=== PATIENT | female | born 1960 | race African-American/Black ===

== ENCOUNTER 2016-07-17 09:28 | Inpatient (IN) | payer OTHER ==
--- NOTE | ~2016-07-17 | BMI ---
[facility] Nutrition Therapy DATE: 07/18/16 Patient: LAUREN CRANDALL Physician: MARK Address: [id number] [place] [address] Room/Bed: [address] [place] [address], Zip: [place] [address] Admit Date: 07/17/16 Date of : [birth year] Height: 5 7 Weight: 298 135.5 HIGH BMI NOTE: DX: 55 Y.O. FEMALE ADMITTED FOR COPD ANTHROPOMETRICS: 5'7", WT: 300# (136 KG), BMI: 47.0 DIET: HH INTERVENTION: 1. DIET RECOMMENDATIONS: 1. RECOMMEND TO ADD CC TO CURRENT DIET ORDER ABOVE TO PROMOTE GRADUAL WEIGHT LOSS TOWARDS HEALTHY BMI (19.0-25.0) OR +/-10%IBW RD WILL F/U PER PROTOCOL Respectfully, KOFI FORTUNE MS, RD, LD Food and Nutritional Services [facility] cc: client file
--- NOTE | ~2016-07-17 | HP ---
Unit #: [id number] #: [id number] Patient: LAUREN CRANDALL [id number] [address] [address] [id number] I MR#: [id number] NAME: LAUREN CRANDALL ROOM: 14559 Age: 55 Sex: F Admission Date: 07/17/2016 : 1960 Attending Physician: Rob Corona M.D. Primary Care Physician: Perfecto Padilla Aprn HISTORY AND PHYSICAL CHIEF COMPLAINT Shortness of breath. HISTORY OF PRESENT ILLNESS The patient is a 55-year-old with multiple medical problems, including chronic obstructive pulmonary disease, obstructive sleep apnea, hypertension, diabetes, status post renal transplant. The patient presented to the emergency room with shortness of breath. The patient stated she woke up at 4 o'clock to make coffee. The patient stated she went to bed after that and noticed the heart fluttering. The patient stated she had a visit with her [facility] physician and was recommended to go to the hospital. The patient was found to be tachypneic and tachycardic at the time of arrival with blood pressure of 123/118 and heart rate 107. The patient had ABG that showed pH 7.4, pCO2 49, pO2 55 and oxygen saturation 95.8. The patient received Lasix and Solu-Medrol in the emergency room and showed improvement after Solu-Medrol. The patient has been admitted for the above reasons. PAST MEDICAL HISTORY 1. Chronic obstructive pulmonary disease. 2. Obstructive sleep apnea on CPAP. 3. Hypertension. 4. Lymphedema of the left breast and left arm after dialysis shunt was removed from the left arm. 5. Migraines. 6. History of kidney failure, status post renal transplant. 7. Depression. 8. Adult onset diabetes mellitus. 9. Gastroesophageal reflux disease. 10. History of hepatitis C. 11. Degenerative joint disease. 12. Bladder cancer. 13. Left knee replacement. PAST SURGICAL HISTORY 1. Left kidney transplant. 2. Left knee replacement. 3. Shunt removal from the left arm. 4. Left breast removed. 5. Fibroid removed. SOCIAL HISTORY The patient lives with her . Started smoking 13 years ago. Seldom drinks alcohol. Unit #: [id number] #: [id number] Patient: LAUREN CRANDALL FAMILY HISTORY Notable for diabetes, heart disease. ALLERGIES No known drug allergies. HOME MEDICATIONS 1. Pepcid. 2. Claritin. 3. Multivitamin. 4. Lantus 40 units subcutaneous before bedtime. 5. Gabapentin. 6. Hydrocodone. 7. Symbicort. 8. Spiriva. 9. Ventolin. 10. Humalog sliding scale. 11. Mycophenolate. 12. K-Sena. 13. Lipitor. 14. Coreg. 15. Norvasc. 16. Phenergan. 17. Ranitidine. 18. Prednisone. 19. Lasix. REVIEW OF SYSTEMS Fourteen point review of systems was performed and only pertinent positives are described above. Remaining are negative. PHYSICAL EXAMINATION GENERAL: The patient is lying on a bed, not in acute distress. VITALS: Temperature 98.6, pulse 112, respiratory rate 20, blood pressure 129/92, saturating 97% on 2 liters nasal cannula. HEENT: Head atraumatic, normocephalic. Pupils equal, round and reactive to light and accommodation. Extraocular movements intact. Dry mucous membranes. NECK: Supple. No jugular venous distension. LUNGS: Decreased air entry at the bases. Positive for expiratory wheezing. HEART: Regular rate and rhythm. Tachycardic. ABDOMEN: Soft. Positive bowel sounds. EXTREMITIES: No cyanosis. No clubbing. NEUROLOGIC: Alert, awake and oriented. No gross focal motor deficits. DIAGNOSTIC STUDIES IMAGING: Chest x-ray shows stable cardiomegaly. No new infiltrates since the previous exam. No active pulmonary disease. LABORATORY: pH 7.4, pCO2 49.8, pO2 55.1, bicarb 30.8, oxygen saturation 85.8 on room air. Glucose 159, BUN 16, creatinine 1, sodium 142, potassium 3.7, chloride 101, bicarb 29, magnesium 1.3, BNP 119. White blood cell count 7.2, hemoglobin 11.0, hematocrit 35.2, platelets 162. CARDIOVASCULAR: EKG shows sinus tachycardia at a rate of 107 beats per minute. CO interval 154. QTC 440. Unit #: [id number] #: [id number] Patient: LAUREN CRANDALL ASSESSMENT 1. Chronic obstructive pulmonary disease exacerbation. 2. Hypoxia. 3. Diabetes mellitus. 4. Anemia. PLAN Admit to inpatient with telemetry. Continue with IV steroids 40 mg q.12 h. Continue with duo-nebs q.4 h. p.r.n. Continue with sliding scale and repeat the labs again in the morning. Further recommendations will follow. Dictated by Kenisha Zuniga TD: 07/17/2016 13:01 JOB #: [id number] HISTORY AND PHYSICAL Page 1 of 1 X X HISTORY AND PHYSICAL
--- NOTE | ~2016-07-17 | DS ---
Unit #: [id number] #: [id number] Patient: LAUREN CRANDALL [id number] [address] [address] [id number] I MR#: [id number] NAME: LAUREN CRANDALL ROOM: [facility] Age: 55 Sex: F Admission Date: 07/17/2016 : 1960 Discharge Date: 07/18/2016 Attending Physician: Karla Schmidt M.D. Primary Care Physician: Perfecto Padilla, Ramona DISCHARGE SUMMARY DISCHARGE DIAGNOSES 1. [id number] hypoxic respiratory failure. 2. Chronic obstructive pulmonary disease with exacerbation. 3. Diabetes mellitus, uncontrolled secondary to steroids. 4. Morbid obesity, body mass index of 47. 5. Obstructive sleep apnea, on CPAP. 6. Hypertension. 7. History of lymphedema of the left breast and left arm after dialysis shunt was removed from left arm. 8. History of migraines. 9. History of kidney failure, status post renal transplant. 10. Depression. 11. Gastroesophageal reflux disease. 12. History of hepatitis C. 13. Degenerative joint disease. 14. History of bladder cancer. 15. Left knee replacement. CONSULTATIONS None. PROCEDURES None. DIAGNOSTIC STUDIES LABORATORY DATA: BMI 47. Glucose 279, sodium 139, potassium 4.5, creatinine 0.9, WBC 6.8, hemoglobin 10.5, platelets 145, BNP 119. ABG: pH 7.40, carbon dioxide 49, oxygen 55. ALLERGIES Peanuts, latex, heparin. DISCHARGE MEDICATIONS 1. Albuterol mini-neb nebulizer q.4 h. p.r.n. shortness of breath. 2. Symbicort two puff inhalation b.i.d. 18 mcg. 3. Prednisone tapering dose. 4. Spiriva 18 mcg inhalation daily. 5. Gabapentin 300 mg daily. 6. Claritin 10 mg daily. 7. Phenergan 25 q.6 h. p.r.n. nausea. 8. Lipitor 80 daily. 9. Coreg 25 p.o. b.i.d. 10. Norvasc 10 daily. 11. Lasix 40 p.o. b.i.d. Unit #: [id number] #: [id number] Patient: LAUREN CRANDALL 12. Humalog 35 units subcu t.i.d. with meals. 13. Lantus 40 units subcu b.i.d. 14. Pepcid 20 p.o. daily. 15. Myfortic 360 mg p.o. b.i.d. 16. Prograf 7 mg p.o. b.i.d. 17. Multivitamin one tablet daily. 18. Lortab 10 mg q.8 h. p.r.n. pain. 19. Potassium 10 mEq p.o. daily. 20. Albuterol MDI two puffs inhalation q.i.d. p.r.n. shortness of breath. HOSPITALIZATION COURSE A 55 year old admitted because of shortness of breath. Oxbdk-tr-nbqnpyk hypoxic respiratory failure secondary to COPD, currently stable. Continue with home O2. COPD with exacerbation. Started on IV Solu-Medrol. Currently lungs are clear. Continue with prednisone tapering dose, DuoNebs and Symbicort and Spiriva. Chronic anemia, iron deficiency, stable. Diabetes mellitus type 2, uncontrolled secondary to steroids. Continue with the home insulin. Morbid obesity, BMI of 47 secondary to calories. Patient is seen by dietitian. Continue the low calorie diet. DISPOSITION Patient will be discharged home. FOLLOWUP Follow with family physician in one-week's time. Dictated by... Kenisha Davis/sulma TD: 07/18/2016 17:34 JOB #: [id number] DISCHARGE SUMMARY Page 1 of 1 X Karla Schmidt MD X DISCHARGE SUMMARY
--- NOTE | ~2016-07-17 | CR72 ---
[facility] A Service [facility] RADIOLOGY TEXT RESULTS PATIENT: LAUREN CRANDALL LOCATION: [facility] : [birth year] UNIT #: [id number] AGE: [address]: Dinora Khanna SEX: F ORDER DR: [id number] [facility] [address]. [place], [place] [address] [id number] MR#: [id number] Acc #: [id number] NAME: LAUREN CRANDALL : 1960 SEX: F STUDY DATE/TIME: 07/17/2016 8:34 UNIT: [facility] ROOM: STUDY DESCRIPTION: CR Chest Single View Portable Attending Physician: Dinora Khanna P.A.-C. Ordering Physician: Dinora Khanna P.A.-C. Primary Care Physician: Perfecto Padilla Aprn MEDICAL IMAGING REPORT This report is preliminary unless electronic signature is present EXAM Portable chest. HISTORY Shortness of breath for the past 2 days with a history of chronic emphysema. COMPARISON 05/13/2016 TECHNIQUE Single view of the chest was obtained. FINDINGS Cardiomegaly is again noted. The lungs are clear with no focal infiltrates. No pleural fluid is seen. Vascular markings are within normal limits. IMPRESSION Stable cardiomegaly. No new infiltrates are seen since the previous exam. No active pulmonary disease. Dictated by... Ren Albarran M.D. THIS IS AN ELECTRONICALLY VERIFIED REPORT Ren Albarran M.D. at 07/17/2016 10:46 AM RLF/laura TD: 07/17/2016 10:15 JOB #: [id number] [facility] A Service [facility] RADIOLOGY TEXT RESULTS PATIENT: LAUREN CRANDALL LOCATION: [facility] : [birth year] UNIT #: [id number] AGE: [address]: Dinora Khanna SEX: F ORDER DR: MEDICAL IMAGING REPORT Page 1 of 1 COPY
--- NOTE | ~2016-07-17 | EKG ---
PATIENT: LAUREN CRANDALL UNIT #: [id number] Ventricular Rate: 88 BPM Atrial Rate: 88 BPM P-R Interval: 162 ms QRS Duration: 64 ms Q-T Interval: 358 ms QTC Calculation(Bezet): 433 ms P [place]: 28 degrees Calculated R [place]: 1 degrees Calculated T [place]: 49 degrees Diagnosis Line: Normal sinus rhythm Diagnosis Line: Low voltage QRS Diagnosis Line: Baseline wander Otherwise normal ECG Diagnosis Line: When compared with ECG of 17-JUL-2016 08:29, Diagnosis Line: ST now depressed in Inferior leads Diagnosis Line: Confirmed by RICARDO LEAL MD ([id number]) on 07/21/2016 Diagnosis Line: 10:45:17 PM INTERPRETING MD: MEL SPEARS
--- NOTE | ~2016-07-17 | EKG ---
PATIENT: LAUREN CRANDALL UNIT #: [id number] Ventricular Rate: 107 BPM Atrial Rate: 107 BPM P-R Interval: 154 ms QRS Duration: 84 ms Q-T Interval: 330 ms QTC Calculation(Bezet): 440 ms P [place]: 44 degrees Calculated R [place]: -13 degrees Calculated T [place]: 53 degrees Diagnosis Line: Sinus tachycardia Diagnosis Line: Low voltage QRS Diagnosis Line: Otherwise normal ECG Diagnosis Line: When compared with ECG of 07-JAN-2016 19:59, Diagnosis Line: QRS duration has increased Diagnosis Line: ST no longer depressed in Inferior leads Diagnosis Line: Confirmed by RICARDO LEAL MD ([id number]) on 07/18/2016 Diagnosis Line: 9:35:14 AM INTERPRETING MD: MEL SPEARS
[2016-07-17 08:50] LABS: ARTERIAL BLD GAS O2 SATURATION 85.8 % (90.0-100.0); ARTERIAL BLOOD GAS CARBOXY HB 1.1 %sat (0.0-9.0); ARTERIAL BLOOD GAS HCO3 30.9 mmol/L; ARTERIAL BLOOD GAS MET HB 0.7 %sat (0.0-2.0); ARTERIAL BLOOD GAS PCO2 49.8 mmHg (35.0-45.0)
[2016-07-17 08:51] LABS: ARTERIAL BLOOD GAS ALLEN TEST NORMAL; ARTERIAL BLOOD GAS ART SITE RIGHT RADIAL; ARTERIAL BLOOD GAS PO2 55.1 mmHg (80.0-100); ARTERIAL DRAW? YES
[2016-07-17 08:52] LABS: ARTERIAL BLOOD GAS DELIVERY ROOM AIR
[2016-07-17 09:17] LABS: POC - CKMB <1.0 ng/mL (0.0-7.9); POC - TROPONIN <0.05 ng/mL (<=0.05)
[2016-07-17 09:20] LABS: BASOPHIL% 0.4 % (0-2.5); EOSINOPHIL# 0.1 X10e3 (0-0.7); HEMATOCRIT 35.2 % (35.0-45.0); LYMPHOCYTE# 1.9 X10e3 (1.0-3.5); LYMPHOCYTE% 26.3 % (17.0-45.0); MEAN CELL VOLUME 92.2 FL (83-96); MEAN CORPUSCULAR HEMOGLOBIN 28.8 PG (28-34); MEAN CORPUSCULAR HGB CONC 31.3 g/dL (30-36); MEAN PLATELET VOLUME 7.9 FL (6.5-11.5); MONOCYTE# 0.8 X10e3 (0-1.0); MONOCYTE% 11.1 % (3.0-12.0); NEUTROPHIL# 4.4 X10e3 (1.5-7.1); NEUTROPHIL% 61.2 % (40-75); PLATELET COUNT 162 X10e3 (140-420); RED BLOOD COUNT 3.82 X10e (3.90-5.30); WHITE BLOOD COUNT 7.2 X10e3 (4.0-10.5)
[2016-07-17 09:21] LABS: DIFF IND NO
[~2016-07-17 09:28] MED LIST: ACID CONTROL150 MG PO; ALBUTEROL17 GM INH; ALOE VERA TOP; AMLODIPINE BESY10 MG PO; CARVEDILOL25 MG PO; COMBIVENT U/D3 M2 INH; COSOPT EYE DROPS5 ML OU; DELTASONE20 MG PO; DEMADEX PO; ELIQUIS5 MG PO; GABAPENTIN300 MG PO; GABAPENTIN400 M2 PO; HUMALOG KW200 UNIT/1 SUBQ; HUMALOG100 U/ML SQ; HYDRALAZINE HCL50 MG PO; HYDROCODON-ACE1 EAC5 PO; K-DUR20 ME1 DOB; KLOR-CON SPRIN10 MEQ PO; LANTUS100 UNITS/ SUBQ; LASIX20 MG PO; LINZESS145 MCG PO; LIPITOR40 MG PO; LIPITOR80 MG PO; LISINOPRIL2.5 MG PO; MILK OF MAGNESIA PO; MIRALAX17 G2 PO; MYFORTIC180 MG PO; NITROGLYGERIN0.4 MG SL; NORCO 10-325 TA1 TAB PO; PEPCID AC20 M2 PO; PHENERGAN25 M1 PO; PREDNISONE5 M1 PO; PRILOSEC PO; ROBITUSSIN A-C S5 ML PO; SPIRIVA18 MCG INH; SYMBICORT80 INH; TOPROL XL PO; TRADJENTA5 MG PO; TYLENOL325 M1 PO; VITAMIN D3400 UNI2 PO; XALATAN OU
[2016-07-17 09:53] LABS: CALCIUM SERUM 9.6 mg/dL (8.4-10.2); GLOM FILT RATE Estimated 74.5 mL/min (>60); POTASSIUM 3.7 mmol/L (3.5-5.1)
[2016-07-17] MEDS ORDERED: CLARITIN10 M3 PO (10:45)
[2016-07-17] MEDS ORDERED: ANIMAL SHAPES1 EAC2 PO (10:50)
[2016-07-17] MEDS ORDERED: LANTUS100 U/ML SUBQ ×2 (10:50→10:51)
[2016-07-17] MEDS ORDERED: LANTUS100 U/ML PO (11:09)
[2016-07-17 11:24] LABS: POC - CKMB <1.0 ng/mL (0.0-7.9); POC - TROPONIN <0.05 ng/mL (<=0.05)
[2016-07-17] MEDS ORDERED: PROGRAF1 MG PO (13:32)
[2016-07-18 07:56] LABS: HEMATOCRIT 33.8 % (35.0-45.0); HEMOGLOBIN 10.5 gm/dL (12.0-16.0); MEAN CORPUSCULAR HEMOGLOBIN 28.8 PG (28-34); MEAN PLATELET VOLUME 8.4 FL (6.5-11.5); RED BLOOD COUNT 3.64 X10e (3.90-5.30); RED CELL DISTRIBUTION WIDTH 19.2 % (11.0-15.5); WHITE BLOOD COUNT 6.8 X10e3 (4.0-10.5)
[2016-07-18 08:44] LABS: BUN/CREATININE RATIO 21.11; CALCIUM SERUM 9.4 mg/dL (8.4-10.2); CREATININE SERUM 0.9 mg/dL (0.6-1.4); GLOM FILT RATE Estimated 84.7 mL/min (>60); POTASSIUM 4.5 mmol/L (3.5-5.1)
== END 2016-07-18 17:22 | disposition home or self-care (01) | DRG 190 ==
LOC: CED 09:28 → CEDOF 10:45 → C5C 17:35
PROVIDERS: Physician Assistant
DX: J44.1 Chronic obstructive pulmonary disease with (acute) exacerbation (principal); J96.21 Acute and chronic respiratory failure with hypoxia; Z94.0 Kidney transplant status; I10 Essential (primary) hypertension; D64.9 Anemia, unspecified; E09.9 Drug or chemical induced diabetes mellitus without complications; Z68.42 Body mass index [BMI] 45.0-49.9, adult; Z79.84 Long term (current) use of oral hypoglycemic drugs; T38.0X5A Adverse effect of glucocorticoids and synthetic analogues, initial encounter; E66.01 Morbid (severe) obesity due to excess calories; G47.33 Obstructive sleep apnea (adult) (pediatric); G43.909 Migraine, unspecified, not intractable, without status migrainosus; F32.9 Major depressive disorder, single episode, unspecified; K21.9 Gastro-esophageal reflux disease without esophagitis; B19.20 Unspecified viral hepatitis C without hepatic coma; M19.90 Unspecified osteoarthritis, unspecified site; Z96.652 Presence of left artificial knee joint; Z85.51 Personal history of malignant neoplasm of bladder
CPT/HCPCS: 36415; 36600; 71010; 80048; 82553; 82803; 82947; 83880; 84484; 85025; 85027; 93005; 94640; 94664; 94760; 96374; 96375; 99285; J1815; J1940; J2405; J2920; J2930; J7507; J7518

== ENCOUNTER → 2016-07-24 | Outpatient (CLI) | payer OTHER ==
[~2016-07-24] MED LIST changes: +ANIMAL SHAPES1 EAC2 PO; +CLARITIN10 M3 PO; +LANTUS100 U/ML PO; +LANTUS100 U/ML SUBQ; +PROGRAF1 MG PO
[2016-07-24 10:02] LABS: BASOPHIL# 0.1 X10e3 (0-0.3); BASOPHIL% 1.3 % (0-2.5); EOSINOPHIL% 0.7 % (0.0-7.0); HEMATOCRIT 34.6 % (35.0-45.0); LYMPHOCYTE# 1.5 X10e3 (1.0-3.5); LYMPHOCYTE% 24.7 % (17.0-45.0); MEAN CELL VOLUME 92.4 FL (83-96); MEAN CORPUSCULAR HEMOGLOBIN 29.4 PG (28-34); MEAN CORPUSCULAR HGB CONC 31.9 g/dL (30-36); MEAN PLATELET VOLUME 7.6 FL (6.5-11.5); MONOCYTE# 0.7 X10e3 (0-1.0); MONOCYTE% 11.2 % (3.0-12.0); NEUTROPHIL# 3.8 X10e3 (1.5-7.1); NEUTROPHIL% 62.1 % (40-75); PLATELET COUNT 148 X10e3 (140-420); RED BLOOD COUNT 3.74 X10e (3.90-5.30); RED CELL DISTRIBUTION WIDTH 18.2 % (11.0-15.5); WHITE BLOOD COUNT 6.2 X10e3 (4.0-10.5)
[2016-07-24 10:03] LABS: DIFF IND NO
[2016-07-24 10:18] LABS: PROTHROMBIN TIME (PATIENT) 11.3 SECONDS (9.5-12.4)
[2016-07-24 10:27] LABS: ALBUMIN SERUM 3.8 g/dL (3.5-5.0); BILIRUBIN,TOTAL 0.7 mg/dL (0.2-2.0); CALCIUM SERUM 9.1 mg/dL (8.4-10.2); GLOM FILT RATE Estimated 74.5 mL/min (>60); MAGNESIUM 1.9 mg/dL (1.6-3.0); POTASSIUM 4.2 mmol/L (3.5-5.1); PROTEIN TOTAL SERUM 7.2 g/dL (6.0-8.3)
== END | disposition home or self-care (01) ==
LOC: STPL 08:39
PROVIDERS: Surgery
DX: Z48.22 Encounter for aftercare following kidney transplant (principal); T45.1X1A Poisoning by antineoplastic and immunosuppressive drugs, accidental (unintentional), initial encounter; Z94.0 Kidney transplant status; Z79.899 Other long term (current) drug therapy
CPT/HCPCS: 36415; 80053; 80197; 83735; 85025; 85610

== ENCOUNTER → 2016-07-31 | Outpatient (CLI) | payer OTHER ==
[2016-07-31 10:23] LABS: BASOPHIL% 0.8 % (0-2.5); EOSINOPHIL# 0.1 X10e3 (0-0.7); HEMATOCRIT 33.8 % (35.0-45.0); HEMOGLOBIN 10.8 gm/dL (12.0-16.0); LYMPHOCYTE# 1.6 X10e3 (1.0-3.5); LYMPHOCYTE% 26.9 % (17.0-45.0); MEAN CELL VOLUME 92.8 FL (83-96); MEAN CORPUSCULAR HEMOGLOBIN 29.7 PG (28-34); MEAN PLATELET VOLUME 7.7 FL (6.5-11.5); MONOCYTE# 0.7 X10e3 (0-1.0); MONOCYTE% 11.9 % (3.0-12.0); NEUTROPHIL# 3.5 X10e3 (1.5-7.1); NEUTROPHIL% 59.4 % (40-75); PLATELET COUNT 131 X10e3 (140-420); RED BLOOD COUNT 3.64 X10e (3.90-5.30); RED CELL DISTRIBUTION WIDTH 17.3 % (11.0-15.5); WHITE BLOOD COUNT 5.9 X10e3 (4.0-10.5)
[2016-07-31 10:28] LABS: DIFF IND NO
[2016-07-31 10:34] LABS: ALBUMIN SERUM 3.6 g/dL (3.5-5.0); BILIRUBIN,TOTAL 0.4 mg/dL (0.2-2.0); GLOM FILT RATE Estimated 74.5 mL/min (>60); POTASSIUM 3.8 mmol/L (3.5-5.1); PROTEIN TOTAL SERUM 6.6 g/dL (6.0-8.3)
[2016-07-31 10:39] LABS: PROTHROMBIN TIME (PATIENT) 11.3 SECONDS (9.5-12.4)
== END | disposition home or self-care (01) ==
LOC: STPL 09:37
PROVIDERS: Surgery
DX: Z48.22 Encounter for aftercare following kidney transplant (principal); T45.1X1D Poisoning by antineoplastic and immunosuppressive drugs, accidental (unintentional), subsequent encounter; Z94.0 Kidney transplant status; Z79.899 Other long term (current) drug therapy
CPT/HCPCS: 36415; 80053; 80197; 85025; 85610